=== PATIENT | male | born 1985 | race Caucasian/White ===

== ENCOUNTER 2019-10-08 19:37 | Emergency (ER) | payer BC, OTHER ==
[2019-10-08] MEDS ORDERED: Metoclopramide 10 MG/2 ML SDV IVPUSH ONE (19:55)
[2019-10-08] MEDS ORDERED: Glucagon,Human Recombinant 1 MG Vial IVPUSH ONE (19:55)
--- NOTE | 2019-10-08 20:04 | EDM.PDOC ---
ED HPI GENERAL MEDICAL PROBLEM - General Chief Complaint: ENT Problem Stated Complaint: OBJECT LODGED INTO THROAT Time Seen by Provider: 10/08/19 19:54 - History of Present Illness INITIAL COMMENTS - FREE TEXT/NARRATIVE: History of present illness: Patient presents with a food bolus stuck since 130 this afternoon when he had pulled pork for lunch. He has had a problem with this in the past he however was able to resolve it on his own over time he is never had a scope he denies any other problems he is unable to tolerate fluids at this time he has no medical problems no allergies nothing seems to be making it better he is tried soda and fluids at home. Review of systems: As per history of present illness and below otherwise all systems reviewed and negative. Past medical history: As per history of present illness and as reviewed below otherwise noncontributory. Surgical history: As per history of present illness and as reviewed below otherwise noncontributory. Social history: No reported history of drug or alcohol abuse. Family history: As per history of present illness and as reviewed below otherwise noncontributory. Physical exam: HEENT: Atraumatic, normocephalic, pupils reactive, negative for conjunctival pallor or scleral icterus, mucous membranes moist, throat clear, neck supple, nontender, trachea midline. Lungs: Clear to auscultation, breath sounds equal bilaterally, chest nontender. Heart: S1S2, regular, negative for clicks, rubs, or JVD. Abdomen: Soft, nondistended, nontender. Negative for masses or hepatosplenomegaly. Negative for costovertebral tenderness. Pelvis: Stable nontender. Genitourinary: Deferred. Rectal: Deferred. Extremities: Atraumatic, negative for cords or calf pain. Neurovascular unremarkable. Neuro: Awake, alert, oriented. Cranial nerves II through XII unremarkable. Cerebellum unremarkable. Motor and sensory unremarkable throughout. Exam nonfocal. Patient is noted to be intolerant of p.o. fluids. Diagnostics: [] Therapeutics: [] Impression: [] Plan: Reglan and glucagon reattempt Coca-[employer]a's swallow bolus. Consult surgery if unsuccessful [] Definitive disposition and diagnosis as appropriate pending reevaluation and review of above. - Related Data Allergies Allergy/AdvReac Type Severity Reaction Status Date / Time No Known Allergies Allergy Verified 10/08/19 19:47 Home Meds: Home Meds Pantoprazole Sodium [Protonix] 40 mg PO DAILY #30 tablet. 10/08/19 [Rx] Past Medical History HEENT History: Reports: None Cardiovascular History: Reports: None Respiratory History: Reports: None Gastrointestinal History: Reports: None Genitourinary History: Reports: None Musculoskeletal History: Reports: None Neurological History: Reports: None Psychiatric History: Reports: None Endocrine/Metabolic History: Reports: None Hematologic History: Reports: None Immunologic History: Reports: None Oncologic (Cancer) History: Reports: None Dermatologic History: Reports: None - Infectious Disease History Infectious Disease History: Reports: None - Past Surgical History Head Surgeries/Procedures: Reports: None HEENT Surgical History: Reports: None Cardiovascular Surgical History: Reports: None Respiratory Surgical History: Reports: None GI Surgical History: Reports: None Male Surgical History: Reports: None Endocrine Surgical History: Reports: None Neurological Surgical History: Reports: None Musculoskeletal Surgical History: Reports: Other (See Below) Oncologic Surgical History: Reports: None Dermatological Surgical History: Reports: None Social & Family History - Family History Family Medical History: Noncontributory - Tobacco Use Smoking Status *Q: Never Smoker Second Hand Smoke Exposure: No - Caffeine Use Caffeine Use: Reports: Coffee, Energy Drinks, Soda, Tea - Recreational Drug Use Recreational Drug Use: No ED ROS GENERAL - Review of Systems Review Of Systems: See Below ED EXAM, GENERAL - Physical Exam Exam: See Below Course - Vital Signs Text/Narrative:: Patient was unable to tolerate Coca-Cola initially he was given a dose of Reglan and glucagon he had some dystonia with the Reglan and was given 50 of Benadryl and this resolved he later began to experience some relief from the food impaction and was able to then drink more of the Coca-Cola after about 15 minutes the impaction resolved completely. He will be discharged home on Protonix he is encouraged to follow-up with a primary care doctor and see a GI doctor he lives outside of [place]. Last Recorded V/S: Last Vital Signs Temp 36.2 C 10/08/19 19:47 Pulse 82 10/08/19 20:26 Resp 18 10/08/19 20:26 BP 132/80 10/08/19 20:26 Pulse Ox 96 10/08/19 20:26 - Orders/Labs/Meds Meds: Medications Discontinued Medications Generic Name Dose Route Start Last Admin Trade Name Freq PRN Reason Stop Dose Admin Diphenhydramine HCl 50 mg 10/08/19 20:06 10/08/19 20:24 Benadryl IVPUSH 10/08/19 20:07 50 mg ONETIME ONE Administration Glucagon 1 mg 10/08/19 19:55 10/08/19 19:59 Glucagen IVPUSH 10/08/19 19:56 1 mg ONETIME ONE Administration Metoclopramide HCl 10 mg 10/08/19 19:55 10/08/19 19:57 Reglan IVPUSH 10/08/19 19:56 10 mg ONETIME ONE Administration Departure - Departure Time of Disposition: 21:03 Disposition: Home, Self-Care 01 Condition: Good Clinical Impression: Bolus impaction of digestive tract - Discharge Information *PRESCRIPTION DRUG MONITORING PROGRAM REVIEWED*: Not Applicable *COPY OF PRESCRIPTION DRUG MONITORING REPORT IN PATIENT JAYA: Not Applicable Instructions: Swallowed Foreign Body, Adult, [id number] Referrals: PCP,None [Primary Care Provider] - Forms: ED Department Discharge Additional Instructions: The following information is given to patients seen in the emergency department who are being discharged to home. This information is to outline your options for follow-up care. We provide all patients seen in our emergency department with a follow-up referral. The need for follow-up, as well as the timing and circumstances, are variable depending upon the specifics of your emergency department visit. If you don't have a primary care physician on staff, we will provide you with a referral. We always advise you to contact your personal physician following an emergency department visit to inform them of the circumstance of the visit and for follow-up with them and/or the need for any referrals to a consulting specialist. The emergency department will also refer you to a specialist when appropriate. This referral assures that you have the opportunity for follow-up care with a specialist. All of these measure are taken in an effort to provide you with optimal care, which includes your follow-up. Under all circumstances we always encourage you to contact your private physician who remains a resource for coordinating your care. When calling for follow-up care, please make the office aware that this follow-up is from your recent emergency room visit. If for any reason you are refused follow-up, please contact the [facility] Emergency Department at and asked to speak to the emergency department charge nurse. [facility] [address], [place] [address] [facility] [address] [place] [id number] Sepsis Event Note (ED) - Evaluation Sepsis Screening Result: No Definite Risk - Focused Exam Vital Signs: Vital Signs Temp Pulse Resp BP Pulse Ox 10/08/19 20:26 82 18 132/80 96 10/08/19 19:47 36.2 C 93 18 138/96 H 97
[2019-10-08] MEDS ORDERED: diphenhydrAMINE 50 MG/ML SDV IVPUSH ONE (20:06)
== END 2019-10-08 21:20 | disposition home or self-care (01) ==
LOC: MW.ED 19:37
DX: T18.128A Food in esophagus causing other injury, initial encounter (principal)
CPT/HCPCS: 96374; 96375; 99283; J1200; J1610; J2765; 99282